=== PATIENT | male | born 1975 | race Caucasian/White ===

== ENCOUNTER 2020-07-25 10:44 | Emergency (ER) | payer OTHER ==
[~2020-07-25] VITALS: Ht 190.5 cm; Wt 75.5 kg
== END 2020-07-25 11:25 | disposition home or self-care (01) ==
LOC: ED 11:20
DX: U07.1 COVID-19 (principal); J02.9 Acute pharyngitis, unspecified; M79.10 Myalgia, unspecified site
CPT/HCPCS: 87635; 99283